=== PATIENT | female | born 1975 | race African-American/Black ===

== ENCOUNTER 2016-07-11 14:48 | Emergency (ER) | payer MEDICAID, OTHER ==
[~2016-07-11] VITALS: Ht 152.4 cm; Wt 64.0 kg
[~2016-07-11 14:48] MED LIST: IBUP-1542 PO
[2016-07-11 14:52] VITALS: Ht 152.4 cm; Wt 64.0 kg
[2016-07-11] MEDS ORDERED: traMADol 50 MG TAB PO ONE (15:30)
[2016-07-11] MEDS ORDERED: ACETAMINOPHEN 325 MG TAB PO ONE (15:30)
--- NOTE | 2016-07-11 15:56 | RADRPT ---
PROCEDURE: US Pelvis. CLINICAL INDICATION: Pelvic pain. TECHNIQUE: The pelvis was evaluated with transabdominal sonography in the axial and sagittal plane s. COMPARISON: 11/03/2015. FINDINGS: The uterus measures 12.4 x 7.8 x 6.9 cm. The uterus is enlarged and heterogeneous with multiple fib roids. The largest fibroid measures 5.0 x 5.5 x 4.5 cm. The endometrium is not visualized. The ov keya are not visualized. There is no other pelvic mass or free fluid. The bladder is empty. IMPRESSION: 1. Enlarged heterogeneous uterus with multiple fibroids. 2. The largest fibroid measures 5.0 x 5.5 x 4.5 cm. 3. Endometrium and ovaries not visualized. 4. Otherwise unremarkable pelvic ultrasound. 5. No change from 11/03/2015. RPTAT: QQ .Harmeet Monique MD, Date Time Electronically viewed and signed by .Harmeet Monique MD, on 07/11/2016 15:56 .R/
[2016-07-11 16:21] LABS: URINE BLOOD (Dip) POC 3+ (NEGATIVE)
--- NOTE | 2016-07-11 17:41 | RADRPT ---
PROCEDURE: CT Abdomen and Pelvis without contrast. CLINICAL INDICATION: Lower abdominal pain TECHNIQUE: CT of the abdomen and pelvis was performed on a multi-detector scanner without IV contr ast. Coronal and sagittal images were reformatted from the axial data set. One or more of the foll owing dose reduction techniques were used: automated exposure control, adjustment of the mA and/or kV according to patient size, use of iterative reconstruction technique. CTDI = 9.29 mGy. DLP = 396 .6 mGy-cm. COMPARISON: Ultrasound, 07/11/2016 FINDINGS: CT abdomen: The lung bases are clear. The heart size is normal, without pericardial effusion. Liver, gallbladd er, biliary tree, pancreas, spleen and adrenal glands are unremarkable. Bilateral benign renal cyst s are noted. Small nonobstructive left renal calculus is identified, without ureterolithiasis or ob structive uropathy. The stomach is partially collapsed, but appears grossly unremarkable. The aorta is of normal caliber. There is no retroperitoneal lymphadenopathy. The suzie hepatis reg ion is clear. CT pelvis: No bowel obstruction, free intraperitoneal air or abscess is identified. No diverticulosis, diverti culitis, colitis or appendicitis is identified. Urinary bladder is grossly unremarkable. Uterus de monstrates a pedunculated 8.5 cm fibroid. Adnexa are grossly unremarkable. No pelvic free fluid or lymphadenopathy is identified. The surrounding osseous structures are remarkable for scoliosis and mild degenerative spondylosis of the spine. No osteolytic or osteoblastic lesion is detected. IMPRESSION: 1. Uterus demonstrates an 8.5 cm pedunculated fibroid. 2. Small nonobstructive left renal calculus is seen, without ureterolithiasis or obstructive uropat hy. 3. No lymphadenopathy or acute inflammatory process is identified. RPTAT: TT .Oziel Lau MD, Date Time Electronically viewed and signed by .Oziel Lau MD, MD on 07/11/2016 17:41 .R/
[2016-07-11] MEDS ORDERED: TRAM50TA2 PO (18:00)
[2016-07-11] MEDS ORDERED: IBUP-1542 PO (18:00)
[2016-07-11] MEDS ORDERED: CEPH-443 PO (18:00)
--- NOTE | 2016-07-11 18:03 | ERD ---
ER Documentation Chief Complaint Date/Time DATE: 07/11/16 TIME: 18:01 Chief Complaint lower abd pain/fibroid pain x1week HPI This 41-year-old female presents with a history of fibroids complaining of worsening lower abdominal pain for last week. She denies fevers, vomiting, vaginal bleeding or dysuria. Pain is in her lower right side. She has an appointment with the specialist for evaluation for myomectomy. ROS All systems reviewed and are negative except as per history of present illness. Medications Home Meds Active Scripts Tramadol HCl (Tramadol HCl) 50 Mg Tablet, 50 MG PO Q4 Y for PAIN, #20 TAB Prov:LATHA JAVIER MD 07/11/16 Ibuprofen* (Motrin*) 600 Mg Tab, 600 MG PO Q6, #20 TAB Prov:LATHA JAVIER MD 07/11/16 Cephalexin* (Keflex*) 500 Mg Capsule, 500 MG PO QID for 5 Days, CAP Prov:LATHA JAVIER MD 07/11/16 Ibuprofen* (Motrin*) 600 Mg Tab, 600 MG PO Q6, #20 TAB Prov:KANE TENA PA-C 11/03/15 Allergies Allergies: Coded Allergies: No Known Allergy (Unverified , 06/13/13) PMhx/Soc Medical and Surgical Hx: pt denies Surgical Hx Hx Miscellaneous Medical Probl: Yes (FIBROIDS) Hx Alcohol Use: No Hx Substance Use: No Hx Tobacco Use: No Physical Exam Vitals Vital Signs Date Time Temp Pulse Resp B/P Pulse Ox O2 Delivery O2 Flow Rate FiO2 07/11/16 14:52 97.8 61 18 131/85 100 Physical Exam Const: [] Alert, [id number]. Head: Atraumatic Eyes: Normal Conjunctiva ENT: Normal External Ears, Nose and Mouth. Neck: Full range of motion..~ No meningismus. Resp: Clear to auscultation bilaterally Cardio: Regular rate and rhythm, no murmurs Abd: Soft tender primarily in the lower right abdomen. No exquisite tenderness at McBurney's point no Simmons sign. No rebound., non distended. Normal bowel sounds Skin: No petechiae or rashes Back: No midline or flank tenderness Ext: No cyanosis, or edema Neur: Awake and alert Psych: Normal Mood and Affect Results 24 hrs Laboratory Tests Test 07/11/16 16:22 Bedside Urine Blood 3+ Bedside Urine Glucose (UA) Negative Bedside Urine Ketones (LAB) Negative Bedside Urine Leukocyte Esterase (L Trace Bedside Urine Nitrite (LAB) Negative Bedside Urine Protein (LAB) Trace Bedside Urine pH (LAB) 5.5 Current Medications Medications (Trade) Dose Ordered Sig/La Route PRN Reason Start Time Stop Time Status Last Admin Dose Admin Tramadol HCl (Ultram) 50 mg ONCE ONCE PO 07/11/16 15:30 07/11/16 15:31 DC 07/11/16 15:46 Acetaminophen (Tylenol Tab) 650 mg ONCE ONCE PO 07/11/16 15:30 07/11/16 15:31 DC 07/11/16 15:45 Procedures/MDM Urine shows 1+ leukocytes. HCG is negative. Pelvic ultrasound shows multiple fibroids largest measured at 5 cm. Ovaries not visualized. Given the uncertain cause of lower abdominal pain CT abdomen and pelvis was obtained which shows a 8 cm pedunculated fibroid. No evidence of appendicitis, abscess, additional acute findings. Patient was given tramadol 50 mg and Tylenol by mouth for pain. Patient was stable amatory throughout the ED course. Patient presents with lower abdominal pain, likely fibroids. She will treated for UTI which may exacerbate her pain. There is no evidence of appendicitis, ovarian torsion, acute abdomen, sepsis, Aortic disease. She will be advised to follow- up with specialist as scheduled or return for fevers, vomiting, worsening pain, new worsening symptoms. Departure Diagnosis: Primary Impression: UTI (urinary tract infection) Urinary tract infection type: acute cystitis Hematuria presence: without hematuria Qualified Code: N30.00 - Acute cystitis without hematuria Additional Impressions: Fibroid Uterine leiomyoma location: subserosal Qualified Code: D25.2 - Subserous leiomyoma of uterus Abdominal pain Abdominal location: lower abdomen, unspecified Qualified Code: R10.30 - Lower abdominal pain Condition: Stable Patient Instructions: Abdominal Pain, Understanding Urinary Tract Infections ( UTIs), Uterine Fibroids Additional Instructions: Urine shows some infection and he will be treated for this. CT confirms fibroid 8 cm likely cause of pain. See specialist as scheduled. Recheck for fevers, vomiting, new or worsening symptoms LATHA JAVIER MD Jul 11, 2016 18:03
== END 2016-07-11 18:14 | disposition home or self-care (01) ==
LOC: FTE 14:48
DX: N30.00 Acute cystitis without hematuria (principal); D25.2 Subserosal leiomyoma of uterus
CPT/HCPCS: 74176; 76856; 81003; Z7502; Z7610

== ENCOUNTER 2016-07-30 11:19 | Emergency (ER) | payer OTHER ==
[~2016-07-30] VITALS: Ht 160 cm; Wt 78.2 kg
[~2016-07-30 11:19] MED LIST changes: +CEPH-443 PO; +TRAM50TA2 PO
[2016-07-30 11:21] VITALS: Ht 160 cm; Wt 78.2 kg
[2016-07-30 13:29] LABS: URINE BLOOD (Dip) POC Trace-lysed (NEGATIVE)
[2016-07-30] MEDS ORDERED: traMADol 50 MG TAB PO ONE (13:30)
[2016-07-30] MEDS ORDERED: IBUP-1542 PO (14:03)
[2016-07-30] MEDS ORDERED: TRAM50TA2 PO (14:03)
[2016-07-30] MEDS ORDERED: ACET500C5 PO (14:04)
[2016-07-30 14:23] VITALS: BP 115/87; PULSE 89; RESP 18
--- NOTE | 2016-07-30 14:26 | ERD ---
ER Documentation Chief Complaint Date/Time DATE: 07/30/16 TIME: 14:24 Chief Complaint ap x 2 hrs HPI This is a 41-year-old female who presents to the emergency room today complaining of pelvic pain for the past couple of hours. Patient states she has a history of fibroids. States she is expecting to see an [facility] in August. States that the same thing happened roughly one month ago when she finished up her menstrual period on July 06. She states that the pain is exactly the same as she always has when she has pain from her fibroids. States that she is here for medication for pain and that the tramadol and Motrin worked well for her last time.States that she has some nausea however denies any vaginal bleeding. ROS All systems reviewed and are negative except as per history of present illness. Medications Home Meds Active Scripts Acetaminophen* (Tylophen*) 500 Mg Capsule, 1 CAP PO Q6H Y for PAIN AND OR ELEVATED TEMP, #30 CAP Prov:KANE TENA PA-C 07/30/16 Ibuprofen* (Motrin*) 600 Mg Tab, 600 MG PO Q6, #30 TAB Prov:KANE TENA PA-C 07/30/16 Tramadol HCl (Tramadol HCl) 50 Mg Tablet, 50 MG PO Q4 Y for PAIN, #20 TAB Prov:KANE TENA PA-C 07/30/16 Tramadol HCl (Tramadol HCl) 50 Mg Tablet, 50 MG PO Q4 Y for PAIN, #20 TAB Prov:LATHA ROUSSEAU MD 07/11/16 Ibuprofen* (Motrin*) 600 Mg Tab, 600 MG PO Q6, #20 TAB Prov:LATHA ROUSSEAU MD 07/11/16 Cephalexin* (Keflex*) 500 Mg Capsule, 500 MG PO QID for 5 Days, CAP Prov:LATHA ROUSSEAU MD 07/11/16 Ibuprofen* (Motrin*) 600 Mg Tab, 600 MG PO Q6, #20 TAB Prov:KANE TENAC 11/03/15 Allergies Allergies: Coded Allergies: No Known Allergy (Unverified , 06/13/13) PMhx/Soc Hx Miscellaneous Medical Probl: Yes (FIBROIDS) Hx Alcohol Use: No Hx Substance Use: No Hx Tobacco Use: No Physical Exam Vitals Vital Signs Date Time Temp Pulse Resp B/P Pulse Ox O2 Delivery O2 Flow Rate FiO2 07/30/16 14:23 89 18 115/87 100 Room Air 07/30/16 11:21 98.4 92 18 121/76 99 Physical Exam Const: No acute distress Head: Atraumatic Eyes: Normal Conjunctiva ENT: Normal External Ears, Nose and Mouth. Neck: Full range of motion..~ No meningismus. Resp: Clear to auscultation bilaterally Cardio: Regular rate and rhythm, no murmurs Abd: Soft, right-sided pelvic pain with palpation. Non distended. Normal bowel sounds. No tenderness at McBurney's. No left lower quadrant pain. Skin: No petechiae or rashes Neur: Awake and alert Psych: Normal Mood and Affect Results 24 hrs Laboratory Tests Test 07/30/16 13:32 Bedside Urine Blood Trace-lysed Bedside Urine Glucose (UA) Negative Bedside Urine Ketones (LAB) Negative Bedside Urine Leukocyte Esterase (L Negative Bedside Urine Nitrite (LAB) Negative Bedside Urine Protein (LAB) Negative Bedside Urine pH (LAB) 7.0 Current Medications Medications (Trade) Dose Ordered Sig/La Route PRN Reason Start Time Stop Time Status Last Admin Dose Admin Tramadol HCl (Ultram) 50 mg ONCE ONCE PO 07/30/16 13:30 07/30/16 13:31 DC 07/30/16 13:28 Procedures/MDM 41-year-old female who presents to the emergency department today complaint of right-sided pelvic pain. Patient has a history of fibroids who was seen here last time in the emergency department on July 11 and had a full workup at this time. Pelvic ultrasound showed multiple fibroids the largest measuring [address] scan was also obtained that showed an 8 cm pedunculated fibroid. Patient states that she does not want to have another full workup of this pain is exactly the same pain that she gets every month around her menstrual cycle related to her fibroids. On physical exam patient has some right-sided pelvic pain. She has no tenderness at McBurney's point and no left lower quadrant pain. She is nondistended. Do not fill the patient requires a full workup at this time. Patient is in no acute distress. She is afebrile and otherwise well- appearing. She is talkative in the exam room. Low suspicion for any acute surgical abdomen at this time. She was wanting pain medication to hold her over as she is able to get that appointment with [facility] in August. I have explained to her that I may give her a limited amount of pain medication that she may also take Tylenol and Motrin. I did obtain a UA and urine UA is negative for infection test is negative Low suspicion for ectopic , tubal ovarian abscess or ovarian torsion. Patient's pain likely related to her fibroids and her cyclic menstrual cycle pain. I gave the patient a short course of tramadol for home as well as Motrin and she stated that the Motrin worked well for her last time as well. She is also given a prescription for Tylenol as well as a list of other [facility] referral to try and get in sooner. At this time the patient is stable for discharge and outpatient management. Patient should follow up with their PCP in the next 1-2 days. They may return to the emergency department sooner for any persistent or worsening of symptoms. Patient understood and agreed with the plan. Discussed the patient with Dr. Rousseau and he is in agreement with the plan. Departure Diagnosis: Primary Impression: Pelvic pain Condition: Fair Patient Instructions: What Are Fibroids?, Pelvic Pain, Unknown Cause Referrals: [facility] [place] [address] [facility] [address] [place], [place] [id number] OFFICE FAX DIOGENES HOFFMAN [address] [place], [place] [phone] [facility] [address] [place] [address] LARRY VAZ [address] [facility] [address] [address] [address] [place] [address] [facility] [address] [place] [address] [address] [facility] [id number] - [address] HILLIARD, SHERIF [address], [facility] [address] [address] ALBA, LUANA [address] [facility] [address], [facility] [phone] MONTE, [facility] [address] [place] [address] Additional Instructions: Call your primary care doctor TOMORROW for an appointment during the next 1-2 days.See the doctor sooner or return here if your condition worsens before your appointment time. Make appt with [facility] and follow up on your visit Tramadol for severe pain otherwise take Tylenol or Motrin KANE TENA PA-C Jul 30, 2016 14:26
== END 2016-07-30 14:24 | disposition home or self-care (01) ==
LOC: FTE 11:19
DX: R10.2 Pelvic and perineal pain (principal)
CPT/HCPCS: 81003; Z7502; Z7610; 99283

== ENCOUNTER 2017-02-07 09:04 | Emergency (ER) | payer SELFPAY ==
[~2017-02-07] VITALS: Wt 67.5 kg
[~2017-02-07 09:04] MED LIST changes: +ACET500C5 PO
[2017-02-07] MEDS ORDERED: HYDROCODONE/APAP (5/325) TAB PO ONE (10:00)
[2017-02-07] MEDS ORDERED: IBUPROFEN 600 MG TAB PO ONE (10:00)
[2017-02-07 10:20] LABS: URINE BLOOD (Dip) POC Negative (NEGATIVE)
[2017-02-07 10:54] LABS: BASOPHILS % 0.8 % (0.0-2.0); EOSINOPHILS # 0.2 10^3/ul (0.0-0.5); EOSINOPHILS % 3.7 % (0.0-7.0); HEMATOCRIT 39.2 % (37.0-47.0); HEMOGLOBIN 13.1 g/dl (12.0-16.0); LYMPHOCYTES % 41.7 % (15.0-51.0); MEAN CORPUSCULAR HEMOGLOBIN 30.4 pg (29.0-33.0); MEAN CORPUSCULAR HGB CONC 33.4 g/dl (32.0-37.0); MEAN PLATELET VOLUME 10.3 fl (7.4-10.4); MONOCYTE # 0.5 10^3/ul (0.3-0.9); MONOCYTES % 9.4 % (0.0-11.0); NEUTROPHILS % 44.2 % (39.0-77.0); PLATELET COUNT 262 10^3/UL (140-415); RED BLOOD COUNT 4.31 10^6/ul (4.20-5.40); RED CELL DISTRIBUTION WIDTH 12.3 % (11.5-14.5); WHITE BLOOD COUNT 4.9 10^3/ul (4.8-10.8)
[2017-02-07 11:22] LABS: ALBUMIN 4.4 g/dl (3.3-4.9); ALBUMIN/GLOBULIN RATIO 1.07; BILIRUBIN,INDIRECT 0.9 mg/dl (0-1.1); BILIRUBIN,TOTAL 0.9 mg/dl (0.2-1.3); CALCIUM 9.3 mg/dl (8.4-10.2); CREATININE 0.81 mg/dl (0.44-1.00); POTASSIUM 4.2 mmol/L (3.5-5.1); TOTAL PROTEIN 8.5 g/dl (6.1-8.1)
--- NOTE | 2017-02-07 11:59 | RADRPT ---
PROCEDURE: US Pelvis. CLINICAL INDICATION: Pelvic pain. TECHNIQUE: The pelvis was evaluated with transabdominal sonography in the axial and sagittal plane s. COMPARISON: No prior study is available for comparison. FINDINGS: The uterus is enlarged measuring 12.7 x 7.8 x 7.1 cm. There is a fundal fibroid measuring 6.2 x 6.1 cm. The endometrium is not visualized. The ovaries are not visualized. There is no other pelvic mass or free fluid. IMPRESSION: 1. Enlarged uterus. Fundal fibroid measuring 6.2 cm. 2. Endometrium and ovaries not visualized. 3. Otherwise unremarkable study. RPTAT: QQ .Harmeet Monique MD, MD Date Time Electronically viewed and signed by .Harmeet Monique MD, on 02/07/2017 11:59 .R/
[2017-02-07] MEDS ORDERED: IBUP-1542 PO (12:44)
[2017-02-07] MEDS ORDERED: TRAM50TA2 PO (12:44)
--- NOTE | 2017-02-07 14:28 | ERD ---
ER Documentation Chief Complaint Date/Time DATE: 02/07/17 TIME: 14:21 Chief Complaint ABD PAIN X 3 DAYS HPI This is a 41-year-old , With past medical history for fibroids,female presenting to emergency department with lower pelvic pain and nausea 3 days.Patient states she has had a long history with uterine fibroids that were diagnosed in October 2015 and has not yet had consultation with EMERGENCY DEPARTMENT PHYSICIAN for removal. Patient has had severe nausea without vomiting. No diarrhea or constipation. No fevers or chills. No upper abdominal pain. Patient states this pain feels exactly the same as before when she was having pain from fibroids. Patient took tramadol and ibuprofen at home with some relief of pain.No chest pain, shortness of breath or difficulty breathing. No chest pressure or heart palpitations. ROS All systems reviewed and are negative except as per history of present illness. Medications Home Meds Active Scripts Ibuprofen* (Motrin*) 600 Mg Tab, 600 MG PO Q6, #30 TAB Prov:WON WOLF NP 02/07/17 Tramadol HCl (Tramadol HCl) 50 Mg Tablet, 50 MG PO Q4 Y for PAIN, #15 TAB Prov:WON WOLF NP 02/07/17 Acetaminophen* (Tylophen*) 500 Mg Capsule, 1 CAP PO Q6H Y for PAIN AND OR ELEVATED TEMP, #30 CAP Prov:KANE TENA-C 07/30/16 Ibuprofen* (Motrin*) 600 Mg Tab, 600 MG PO Q6, #30 TAB Prov:KANE TENA-C 07/30/16 Tramadol HCl (Tramadol HCl) 50 Mg Tablet, 50 MG PO Q4 Y for PAIN, #20 TAB Prov:KANE TENA-C 07/30/16 Tramadol HCl (Tramadol HCl) 50 Mg Tablet, 50 MG PO Q4 Y for PAIN, #20 TAB Prov:LATHA JAVIER MD 07/11/16 Ibuprofen* (Motrin*) 600 Mg Tab, 600 MG PO Q6, #20 TAB Prov:LATHA JAVIER MD 07/11/16 Cephalexin* (Keflex*) 500 Mg Capsule, 500 MG PO QID for 5 Days, CAP Prov:LATHA JAVIER MD 07/11/16 Ibuprofen* (Motrin*) 600 Mg Tab, 600 MG PO Q6, #20 TAB Prov:KANE TENA PA-C 11/03/15 Allergies Allergies: Coded Allergies: No Known Allergy (Unverified , 06/13/13) PMhx/Soc Hx Miscellaneous Medical Probl: Yes (FIBROIDS) Hx Alcohol Use: No Hx Substance Use: No Hx Tobacco Use: No Physical Exam Vitals Vital Signs Date Time Temp Pulse Resp B/P Pulse Ox O2 Delivery O2 Flow Rate FiO2 02/07/17 09:06 98.9 78 18 121/81 99 Physical Exam Const: alert, no acute distress Head: Atraumatic Eyes: Normal Conjunctiva ENT: Normal External Ears, Nose and Mouth. Neck: Full range of motion..~ No meningismus. Resp: Clear to auscultation bilaterally Cardio: Regular rate and rhythm, no murmurs Abd: Soft, non tender, non distended. Normal bowel sounds. Negative murphys sign, negative rebound tenderness, negative tenderness at McBurney point Skin: No petechiae or rashes Back: No midline or flank tenderness Ext: No cyanosis, or edema Neur: Awake and alert Psych: Normal Mood and Affect Result Diagram: 02/07/17 1010 02/07/17 1010 Results 24 hrs Laboratory Tests Test 02/07/17 10:10 02/07/17 10:26 White Blood Count 4.910^3/ul Red Blood Count 4.3110^6/ul Hemoglobin 13.1g/dl Hematocrit 39.2% Mean Corpuscular Volume 91.0fl Mean Corpuscular Hemoglobin 30.4pg Mean Corpuscular Hemoglobin Concent 33.4g/dl Red Cell Distribution Width 12.3% Platelet Count 91985^3/UL Mean Platelet Volume 10.3fl Neutrophils % 44.2% Lymphocytes % 41.7% Monocytes % 9.4% Eosinophils % 3.7% Basophils % 0.8% Nucleated Red Blood Cells % 0.0/100WBC Neutrophils # (Manual) 2.210^3/ul Lymphocytes # 2.010^3/ul Monocytes # 0.510^3/ul Eosinophils # 0.210^3/ul Basophils # 0.010^3/ul Nucleated Red Blood Cells # 0.010^3/ul Sodium Level 144mmol/L Potassium Level 4.2mmol/L Chloride Level 106mmol/L Carbon Dioxide Level 23mmol/L Anion Gap 19 Blood Urea Nitrogen 14mg/dl Creatinine 0.81mg/dl Glucose Level 88mg/dl Calcium Level 9.3mg/dl Total Bilirubin 0.9mg/dl Direct Bilirubin 0.00mg/dl Indirect Bilirubin 0.9mg/dl Aspartate Amino Transf (AST/SGOT) 27IU/L Alanine Aminotransferase (ALT/SGPT) 28IU/L Alkaline Phosphatase 57IU/L Total Protein 8.5g/dl Albumin 4.4g/dl Globulin 4.10g/dl Albumin/Globulin Ratio 1.07 Bedside Urine pH (LAB) 5.5 Bedside Urine Protein (LAB) 1+ Bedside Urine Glucose (UA) Negative Bedside Urine Ketones (LAB) Trace Bedside Urine Blood Negative Bedside Urine Nitrite (LAB) Negative Bedside Urine Leukocyte Esterase (L Negative Current Medications Medications (Trade) Dose Ordered Sig/La Route PRN Reason Start Time Stop Time Status Last Admin Dose Admin Ibuprofen (Motrin) 600 mg ONCE ONCE PO 02/07/17 10:00 02/07/17 10:01 DC 02/07/17 10:02 Acetaminophen/ Hydrocodone Bitart (Hamilton (5/325)) 1 tab ONCE ONCE PO 02/07/17 10:00 02/07/17 10:01 DC 02/07/17 10:02 Procedures/[place] [address] Radiology Main Line: [phone] DIAGNOSTIC IMAGING REPORT Patient: VALARIE COHEN : 1975 Age: 41 Sex: F [id number] DOS: 02/07/17 0948 Ordering MD: WON WOLF NP Location: [facility] Room/Bed: PROCEDURE: US Pelvis. CLINICAL INDICATION: Pelvic pain. TECHNIQUE: The pelvis was evaluated with transabdominal sonography in the axial and sagittal planes. COMPARISON: No prior study is available for comparison. FINDINGS: The uterus is enlarged measuring 12.7 x 7.8 x 7.1 cm. There is a fundal fibroid measuring 6.2 x 6.1 cm. The endometrium is not visualized. The ovaries are not visualized. There is no other pelvic mass or free fluid. IMPRESSION: 1. Enlarged uterus. Fundal fibroid measuring 6.2 cm. 2. Endometrium and ovaries not visualized. 3. Otherwise unremarkable study. MDM: This is a 41-year-old female with past medical history for uterine fibroids presents emergency department with lower pelvic pain and nausea 3 days. Patient's vital signs are stable. Patient is afebrile upon arrival to ED. Patient has nausea however denies vomiting or diarrhea. Last menstrual period 12/23/2016 and denies being sexually active. Patient given Hamilton and ibuprofen p.o. while in the ED. UA is negative for infection. Urine is negative. CBC shows no significant anemia or infection. CMP shows no significant electrolyte imbalance. Liver enzymes are normal. Bilirubin is normal. Glucose is normal. Pelvic ultrasound reviewed by radiologist as enlarged uterus, fundal fibroid measuring 6.2cm. Endometrium and ovaries not visualized otherwise unremarkable. Vitals are stable. Discussed findings with patient. Differential diagnosis includes but not limited to acute appendicitis, diverticulitis, diverticulosis, bowel obstruction, constipation, infectious colitis, irritable bowel syndrome, inflammatory bowel disease, viral gastroenteritis, abdominal aortic aneurysm, food intolerance, celiac disease, UTI, pyelonephritis, nephrolithiasis, acute urinary retention or colorectal cancer. I doubt any emergent conditions such as appendicitis, diverticulitis, bowel obstruction, abdominal aortic aneurysm at this time due to normal vital signs and normal lab results. Patient is appropriate for outpatient management. Patient will be given prescription for ibuprofen 600 mg #20 and tramadol 50 mg #15. Instructed patient to follow-up with primary care provider in the next 2-3 days for reassessment and additional management. Return to ED for any high fever, chest pain, difficulty breathing, shortness breath, wheezing, vomiting, diarrhea, abdominal pain or any new or worsening symptoms. Patient verbalizes understanding. All questions answered at discharge. Departure Diagnosis: Primary Impression: Pelvic pain Condition: Stable Patient Instructions: What Are Fibroids?, Uterine Fibroids Referrals: [facility] (PCP) [facility] YOU HAVE RECEIVED A MEDICAL SCREENING EXAM AND THE RESULTS INDICATE THAT YOU DO NOT HAVE A CONDITION THAT REQUIRES URGENT TREATMENT IN THE EMERGENCY DEPARTMENT. FURTHER EVALUATION AND TREATMENT OF YOUR CONDITION CAN WAIT UNTIL YOU ARE SEEN IN YOUR DOCTORS OFFICE WITHIN THE NEXT 1-2 DAYS. IT IS YOUR RESPONSIBILITY TO MAKE AN APPOINTMENT FOR FOLOW-UP CARE. IF YOU HAVE A PRIMARY DOCTOR --you should call your primary doctor and schedule an appointment IF YOU DO NOT HAVE A PRIMARY DOCTOR YOU CAN CALL OUR PHYSICIAN REFERRAL HOTLINE AT IF YOU CAN NOT AFFORD TO SEE A PHYSICIAN YOU CAN CHOSE FROM THE FOLLOWING [facility] CLINICS [facility] [address] [facility] [address] [facility] [phone] [facility] [address] [facility] [address] [facility]. [facility] [address] [facility] [facility] YOU HAVE RECEIVED A MEDICAL SCREENING EXAM AND THE RESULTS INDICATE THAT YOU DO NOT HAVE A CONDITION THAT REQUIRES URGENT TREATMENT IN THE EMERGENCY DEPARTMENT. FURTHER EVALUATION AND TREATMENT OF YOUR CONDITION CAN WAIT UNTIL YOU ARE SEEN IN YOUR DOCTORS OFFICE WITHIN THE NEXT 1-2 DAYS. IT IS YOUR RESPONSIBILITY TO MAKE AN APPOINTMENT FOR FOLOW-UP CARE. IF YOU HAVE A PRIMARY DOCTOR --you should call your primary doctor and schedule and appointment IF YOU DO NOT HAVE A PRIMARY DOCTOR YOU CAN CALL OUR PHYSICIAN REFERRAL HOTLINE AT . IF YOU CAN NOT AFFORD TO SEE A PHYSICIAN YOU CAN CHOSE FROM THE FOLLOWING [facility] INSTITUTIONS: [facility] [address] [place] [address] [facility] [address] [place] [address] [facility] [address] [place] [address] EMERGENCY DEPARTMENT PHYSIC[place] [address] [facility] [address] [place] [address] OFFICE FAX DIOGENES HOFFMAN [address] [place] [address] [facility] [address] [place], [place] [id number] [facility] [address] [facility], [address], [facility] [address] [address] ANTONY, [facility] [address] [facility], [place] [address] [facility] [address] [place] [address] [facility] [address] [address] HILLIARD, SHERIF [address], [facility] [id number] ALBA, LUANA [address] [facility]. [address], [facility] [address] [address] MONTE, [facility] [address] [place], [place] [id number] Additional Instructions: Call your primary care doctor TOMORROW for an appointment during the next 2-3 days.See the doctor sooner or return here if your condition worsens before your appointment time. Return to ED for any high fever, chest pain, difficulty breathing, shortness breath, wheezing, vomiting, diarrhea, abdominal pain or any new or worsening symptoms. WON WOLF NP Feb 07, 2017 14:28
== END 2017-02-07 13:04 | disposition home or self-care (01) ==
LOC: FTE 09:04
DX: R10.2 Pelvic and perineal pain (principal)
CPT/HCPCS: 36415; 76856; 80053; 81003; 85025

== ENCOUNTER 2018-01-07 17:45 | Emergency (ER) | END 2018-01-07 19:37 | disposition home or self-care (01) ==